=== PATIENT | female | born 1975 | race American Indian/Alaskan Native ===

== ENCOUNTER 2021-01-28 04:38 | Emergency (ER) | payer BC, SELFPAY ==
[2021-01-28] VITALS (42 sets, daily range): BP systolic 99–148; BP diastolic 48–73; PULSE 67–80; RESP 16; TEMP 36.7; O2SAT 90–98
--- NOTE | 2021-01-28 04:53 | ED.GENADUL_ITS ---
Discharge Plan Disposition Patient Disposition: HOME Condition: Stable Discharge Details Clinical Impression: Left flank pain, Hematuria, Abnormal LFTs Primary Care Provider: Kemar Reyna ED Provider: Kendy Wilkinson Home Meds and New Rx's Prescriptions: Continued levothyroxine [Synthroid] 200 mcg Tablet 200 RF: 0 sertraline 50 mg Tablet 50 mg RF: 0 phentermine 37.5 mg Capsule 37.5 mg RF: 0 Discharge Instructions Instructions: Kidney Stones (ED), Hematuria (ED), Flank Pain (ED) Additional Instructions: Please return immediately to the emergency department if you develop any new or worsening symptoms, if your condition does not improve as expected, or if you become otherwise concerned. It is extremely important that you call soon as possible to make an appointment to be seen in follow-up for this visit by your primary care doctor and a urologist as we discussed. Referrals: Fredo Nettles MD [ [facility] STAFF PHYSICIAN] - Kemar Reyna [Primary Care Provider] - Discharge Data Discharge Date/Time-TO BE ENTERED AT DEPARTURE: 01/28/21 09:57 Medical Decision Making <Bryn Yoo MD - Last Filed: 02/05/21 20:43> Patient presenting with left flank pain. Initial vital signs are normal. Abdomen is benign for me. Given her report of questionable blood in her urine consider UTI or kidney stone. Unfortunately she surpasses the weight limit of her CAT scan table. For now we will plan labs, urine and treat with IV Toradol and Zofran. If anything suspicious laboratory studies consider renal ultrasound. Patient blood work is unremarkable. Patient reports feeling much better after medication. Will obtain straight cath urine and determine disposition based on results. Lab Data Lab results reviewed: Yes I reviewed the patient's lab results. <Kendy Wilkinson MD - Last Filed: 02/09/21 20:58> Pt signed out to me at time of shift change by Dr. Yoo with renal US, reassessment pending. Please see his note for H&P. US shows no abnormality of the left kidney, right kidney not visualized. On my evaluation Pt reports that pain resolved entirely after meds. States that she has no complaints at this time. Concern for possible passed kidney stone. Exam/hx at this time is not consistent with acute emergent intra-abdominal process, UTI, sepsis, acute aortic process. Pt states that she feels well and is ready for discharge. As Pt is currently asymptomatic, transfer for CT not indicated. I had a lengthy discussion with the Pt re: limitations of initial evaluation today 2/2 inabilty to obtain advanced imaging and importance of RTED for any worsening of symptoms. I had a lengthy discussion with Patient regarding return to emergency department precautions, home care, and importance of outpatient follow-up. Pt verbalizes understanding of the plan and is amenable. Patient discharged to home with clear plan for outpatient follow-up. All questions were answered. Disposition decision was made weighing the risks and benefits of hospitalization versus outpatient treatment, the risk for further decompensation, and the patie nt's wishes. Medical Records Medical records reviewed: Yes I reviewed the patient's medical records. Imaging Data Radiologic Study: Attestation: I personally reviewed and interpreted this imaging study as follows: Radiologist's impression: EXAM: US RENAL CLINICAL HISTORY: left flank pain and hematuria TECHNIQUE: Ultrasound of both kidneys performed using standard protocol. COMPARISON: No exams were available for comparison FINDINGS: RIGHT KIDNEY: Apparently not able to be adequately visualized due to body habitus. LEFT KIDNEY: Measures 12.3 cm in length. No cysts evident. Normal cortical thickness and corticomedullary differentiaion. No solids masses. No intrarenal calculi nor hydonephrosis. URINARY BLADDER: Intraluminal urine volume is only 17 cc. Therefore occult to assess accurately for bladder masses. No obvious bladder diverticuli noted. Ureterovesical jets: Not identified IMPRESSION: 1. No significant ultrasound findings in the left kidney. 2. Right kidney was not able to be seen, apparently related to body habitus. Lab Data Lab results reviewed: Yes I reviewed the patient's lab results. Labs: Laboratory Tests Range/Units 01/28/21 01/28/21 01/28/21 05:10 05:10 06:58 WBC (4.4-10.8) 10^3/uL 5.08 RBC (3.93-5.22) 10^6/uL 4.29 Hgb (11.2-15.7) g/dL 13.8 Hct (36.0-46.0) % 42.8 MCV (80-95) fL 99.8 H MCH (27.0-33.0) pg 32.2 MCHC (32.0-36.0) % 32.2 RDW (11.7-14.6) % 13.5 Plt Count (130-400) 10^3/uL 206 MPV (8.0-11.0) fL 10.0 Immature Gran % 0.2 Neutrophils % 59.4 Lymphocytes % 26.6 Monocytes % 10.8 Eosinophils % 2.4 Basophils % 0.6 Nucleated RBC % % 0 Absolute Neutrophils (1.2-6.7) 10^3/uL 3.02 Absolute Lymphocytes (1.2-3.4) 10^3/uL 1.35 Absolute Monocytes (0.1-0.8) 10^3/uL 0.55 Absolute Eosinophils (0.0-0.7) 10^3/uL 0.12 Absolute Basophils (0.0-0.2) 10^3/uL 0.03 Sodium (136-145) mmol/L 144 Potassium (3.5-5.1) mmol/L 3.7 Chloride (98-107) mmol/L 108 H Carbon Dioxide (21.0-32.0) mmol/L 27.1 Anion Gap (3-11) mmol/L 8.9 BUN (7-18) mg/dL 10 Creatinine (0.55-1.02) mg/dL 1.0 Estimated GFR/1.73 m2 (mL/min/1.73m2) 59.96 Glucose (74-106) mg/dL 101 Calcium (8.5-10.1) mg/dL 8.8 Total Bilirubin (0.2-1.0) mg/dL 0.5 AST (15-37) U/L 43 H ALT (14-59) U/L 49 Alkaline Phosphatase (46-116) U/L 127 H Total Protein (6.4-8.2) g/dL 7.0 Albumin (3.4-5.0) g/dL 3.4 Lipase (73-393) U/L 58 Urine Color (Yellow) Yellow Urine Clarity (Clear) Cloudy Urine pH (5-8) 6.0 Ur Specific [place] (1.005-1.025) >= 1.030 H Urine Protein (Negative) mg/dL 100 H Urine Ketones (Negative) mg/dL Negative Urine Blood (Negative) Large H Urine Nitrite (Negative) Negative Urine Bilirubin (Negative) Small H Urine Urobilinogen (Up TO 0.2) EU/dL 0.2 Ur Leukocyte Esterase (Negative) Negative Urine RBC (0-2) HPF >50 H Urine WBC (0-5) HPF 0-2 Ur Epithelial Cells (Negative) HPF Few Urine Crystals (Negative) HPF Mod Calcium Oxalate Urine Bacteria (Negative) HPF Rare Urine Casts (Negative) LPF Negative Urine Mucus (Negative) Moderate Ur Culture Indicated? No Urine Glucose (Negative) mg/dL Negative HPI <Bryn Yoo MD - Last Filed: 02/05/21 20:43> General Mode of arrival: ambulatory . Date/Time Provider Initiated Documentation: 01/28/21 04:53 . Limitations to Documentation: no limitations . Information obtained by: patient and RN notes reviewed . HPI Narrative: Patient presents to the ED with left flank pain which started earlier this mo rning. 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 Describes it as a sharp ache that does not seem to radiate anywhere but is in the left side. Some nausea but no vomiting or diarrhea. Denies having pelvic pain or back pain. Describes small amount of blood in his urine when she went to the bathroom earlier. Denies fever or urinary symptoms. She denies chest pain or shortness of breath. She denies any injury. She took ibuprofen when it first started around 1 AM Related Data Home Medications Medication Instructions Recorded Confirmed levothyroxine [Synthroid] 200 01/28/21 phentermine 37.5 mg 01/28/21 sertraline 50 mg 01/28/21 Allergies Allergy/AdvReac Type Severity Reaction Status Date / Time ceftriaxone [From Rocephin] Allergy Anaphylaxis Unverified 01/28/21 04:54 lamotrigine [From Lamictal] Allergy Anaphylaxis Unverified 01/28/21 04:54 penicillin G AdvReac Unverified 01/28/21 04:54 Sulfa (Sulfonamide AdvReac Unverified 01/28/21 04:54 Antibiotics) General Stated Complaint: Abd Prob FIGUEROA: 3 Review of Systems <Bryn Yoo MD - Last Filed: 02/05/21 20:43> Narrative: As documented in HPI otherwise negative as below. Const: no fever, chills, weakness Resp: no cough, SOB, pleuritic pain CV: no CP, diaphoresis, edema, syncope GI: no vomiting, diarrhea Neuro: no headache, numbness, focal weakness, confusion PFSH <Bryn Yoo MD - Last Filed: 02/05/21 20:43> Medical History Hypothyroid PCOS (polycystic ovarian syndrome) Surgical History S/P cholecystectomy Social History Smoking/Tobacco Use Status: Never Smoking risk assessment performed?: Yes Alcohol Intake: never Substance use type: does not use Do you feel safe at home: Yes Do you feel safe in your relationship?: Yes Exam <Bryn Yoo MD - Last Filed: 02/05/21 20:43> Narrative Exam Narrative: Const: Morbidly obese female in NAD. HEENT: NC/AT. Normal facial exam. Eyes: Normal conjunctiva and sclera. Neck: Supple. Trachea midline. Lungs: Normal respiratory effort. Lungs are clear. Cor: RRR without murmur/gallop. Good radial pulses. GI: Soft and ND. Tender left flank/left lateral abdomen but without guarding Pelvic: deferred Neuro: A+O x 3. Normal speech, mentation, gait. Cranial nerves II - XII grossly intact. No gross motor or sensory deficit. Ext: No C/C/E. Skin: Warm and dry without rash. Course <Bryn Yoo MD - Last Filed: 02/05/21 20:43> Vital Signs Vital signs: Vital Signs Temperature 98.1 F 01/28/21 04:47 Pulse 80 01/28/21 04:47 Respiratory Rate 16 01/28/21 04:47 Blood Pressure 139/71 01/28/21 04:47 Pulse Oximetry 94 01/28/21 04:47 Temperature 98.1 F 01/28/21 04:47 Temperature Source Temporal Artery Scan 01/28/21 04:47 Pulse 80 01/28/21 04:47 Respiratory Rate 16 01/28/21 04:47 Respiratory Effort Non-Labored 01/28/21 04:51 Blood Pressure 139/71 01/28/21 04:47 Pulse Oximetry 94 01/28/21 04:47 Oxygen Delivery Method Room Air 01/28/21 04:47 Oxygen Flow Rate 0 01/28/21 04:47 Pain Level 8 01/28/21 04:47 Sign Out <Bryn Yoo MD - Last Filed: 02/05/21 20:43> Sign Out Data: Sign Out Comment: Patient's urine with significant blood present. Will obtain renal ultrasound prior to discharge to rule out any evidence of obstruction. Patient signed out to Dr. Wilkinson to follow-up on ultrasound and disposition. Last updated by Bryn Yoo MD at 01/28/21 07:47
[2021-01-28] MEDS: Ondansetron 4 MG/2 ML VIAL IVP (05:25)
[2021-01-28] MEDS: Ketorolac 30 MG/ML VIAL IVP (05:25)
[2021-01-28 05:36] LABS: Abs Immature Grans 0.01 10^3/uL (0.0-0.06); Absolute Basophil Count 0.03 10^3/uL (0.0-0.2); Absolute Eosinophil Count 0.12 10^3/uL (0.0-0.7); Absolute Lymphocyte Count 1.35 10^3/uL (1.2-3.4); Absolute Monocyte Count 0.55 10^3/uL (0.1-0.8); Absolute Neutrophil Count 3.02 10^3/uL (1.2-6.7); Basophils % 0.6; Eosinophils % 2.4; HCT 42.8 % (36.0-46.0); HGB 13.8 g/dL (11.2-15.7); Immature Grans % 0.2; Lymphocytes % 26.6; MCH 32.2 pg (27.0-33.0); MCHC 32.2 % (32.0-36.0); MCV 99.8 fL (80-95); Monocytes % 10.8; Neutrophils % 59.4; Nucleated RBC 0 %; Platelet Count 206 10^3/uL (130-400); RBC 4.29 10^6/uL (3.93-5.22); RDW 13.5 % (11.7-14.6); RDW-SD 49.3 fL; WBC 5.08 10^3/uL (4.4-10.8)
[2021-01-28 06:02] LABS: ALT 49 U/L (14-59); AST 43 U/L (15-37); Albumin 3.4 g/dL (3.4-5.0); Alkaline Phosphatase 127 U/L (46-116); Anion Gap 8.9 mmol/L (3-11); BUN 10 mg/dL (7-18); Bilirubin, Total 0.5 mg/dL (0.2-1.0); CO2 27.1 mmol/L (21.0-32.0); Calcium 8.8 mg/dL (8.5-10.1); Chloride 108 mmol/L (98-107); Estimated GFR 59.96 (mL/min/1.73m2); Glucose 101 mg/dL (74-106); Lipase 58 U/L (73-393); Potassium 3.7 mmol/L (3.5-5.1); Sodium 144 mmol/L (136-145)
[2021-01-28 07:10] LABS: Bilirubin Small (Negative); Blood Large (Negative); Clarity Cloudy (Clear); Glucose Negative (Negative); Ketones Negative (Negative); Leukocyte Esterase Negative (Negative); Nitrite Negative (Negative); Specific Gravity >= 1.030 (1.005-1.025); Urobilinogen 0.2 EU/dL (Up TO 0.2)
--- NOTE | 2021-01-28 07:15 | DI.US_ITS ---
Exam(s) US RENAL EXAM: US RENAL CLINICAL HISTORY: left flank pain and hematuria TECHNIQUE: Ultrasound of both kidneys performed using standard protocol. COMPARISON: No exams were available for comparison FINDINGS: RIGHT KIDNEY: Apparently not able to be adequately visualized due to body habitus. LEFT KIDNEY: Measures 12.3 cm in length. No cysts evident. Normal cortical thickness and corticomedullary differe ntiaion. No solids masses. No intrarenal calculi nor hydonephrosis. URINARY BLADDER: Intraluminal urine volume is only 17 cc. Therefore occult to assess accurately for bladder masses. No obvious bladder diverticuli noted. Ureterovesical jets: Not identified IMPRESSION: 1. No significant ultrasound findings in the left kidney. 2. Right kidney was not able to be seen, apparently related to body habitus. DATA REPOSITORY:
[2021-01-28 07:27] LABS: Bacteria Rare HPF (Negative); Epithelial Cells Few HPF (Negative); RBC >50 HPF (0-2); WBC 0-2 HPF (0-5)
[2021-01-28 07:28] LABS: C & S Indicated? No; Casts Negative LPF (Negative); Crystals Mod Calcium Oxalate HPF (Negative); Mucus Moderate (Negative)
--- OUTSIDE RECORDS SUMMARY | 2021-01-28 07:54 | XMS_ITS ---
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 MCHC 32.6 32.0-36.0 RDW 13.2 11.0-14.0 PLT 196 140-440 MPV 10.3 7.4-11.0 ANC# 3.2 1.4-7.9 IG# 0.0 0.0-0.1 LY# 1.5 1.5-4.0 MO# 0.4 0.2-0.8 EO# 0.2 0.0-0.7 BA# 0.0 0.0-0.2 NE% 60.6 IG% 0.2 0.0-1.0 LY% 27.9 MO% 8.3 EO% 3.0 BA% 0.2 COMPMET 2017-02-28 GLUC 114 74-106 BUN 10 7-18 CREATS 0.76 0.55-1.30 EGFR >60 >=60 NA 142 136-144 K+ 4.3 3.7-5.0 CL 109 98-108 CO2 25 22-32 CA 8.7 8.5-10.1 TP 6.6 6.5-8.1 ALB 3.4 3.4-5.0 TBIL 0.4 0.3-1.2 DBIL 0.1 0.0-0.2 ALKP 103 46-116 AST 24 15-37 ALT 28 13-78 LIPID W/ CALCULATED LDL 2017-02-28 CHOL 213 0-200 TRIG 155 0-200 HDL 48 40-60 LDL CALC 134 5-99 CHOL/HDL 4.4 0.0-4.5 TSH 2017-02-28 TSH 6.110 0.360-4.800 X Knee R 2V 2017-02-16 Image Accessible US Breast Unilateral Complete 2016-12-22 See Below For Report MG Mammo (Unilat-DIAGNOSTIC) 2016-12-22 See Below For Report TSH 2016-09-07 TSH 0.242 0.360-4.800 Path:Endometrial biopsy 2016-08-26 Findings MG Mammo Screening 2016-03-04 See Below For Report COMPMET 2016-02-27 GLUC 111 74-106 BUN 8 7-18 CREATS 0.86 0.55-1.30 EGFR >60 >=60 NA 142 136-144 K+ 3.4 3.7-5.0 CL 107 98-108 CO2 24 22-32 CA 8.6 8.5-10.1 TP 6.8 6.5-8.1 ALB 3.5 3.4-5.0 TBIL 0.4 0.3-1.2 DBIL 0.1 0.0-0.2 ALKP 98 46-116 AST 34 15-37 ALT 44 13-78 HIV 1/2 ANTIBODIES 2016-02-27 HIV Screen 4th Generation wRfx Non Reactive N on Reactive LIPID W/ CALCULATED LDL 2016-02-27 CHOL 235 0-200 TRIG 177 0-200 HDL 50 40-60 LDL CALC 150 5-99 CHOL/HDL 4.7 0.0-4.5 THYROID PROFILE 2016-02-27 TU 28.0 31.0-39.0 T4 12.40 4.70-13.30 TSH 1.165 0.360-4.800 FTI 8.68 5.93-13.13 RAPID STREP SCREEN,IN OFFICE (2 2016-01-15 Swab System) Result neg RAPID STREP PLATE 2016-01-15 Culture Observations Negative for group A Strep. Direct Exam Negative first day HIV 1/2 ANTIBODIES 2015-09-26 HIV Screen 4th Generation wRfx HIV 1/0/2 ABS QUAL HIV 1/0/2 ABS HIV 1/0/2 ABS INDEX VALUE HIV 1/2 [facility] TEST SITE BASEMET 2010-09-28 GLUCOSE 99 74-118 BUN 6 8-26 CREATININE STANDARDIZED 0.74 0.50-1.1 5 ESTIMATED GLOMERULAR FILTRATION >60 SODIUM 141 136-144 POTASSIUM 4.1 3.7-5.0 CHLORIDE 112 101-111 CARBON DIOXIDE 25 22-32 CALCIUM 9.1 8.8-10.3 CBC WITH AUTO DIFF 2010-09-28 WHITE BLOOD COUNT 3.9 4.0-12.0 RED CELL COUNT 4.2 4.5-6.0 HEMOGLOBIN 14.1 12.5-16.0 HEMATOCRIT 41.6 37.0-47.0 MEAN CORPUSCULAR VOLUME 98 78-100 MEAN CORPUSCULAR HEMOGLOBIN 33.4 27.0 -32.0 MEAN CORPUSCULAR HGB CONC. 34.0 32.0- 36.0 RED CELL DISTRIBUTION WIDTH 12.7 11.0 -14.0 PLATELET 186 140-440 MEAN PLATELET VOLUME 8.0 7.4-11.0 NEUTROPHIL % 47.6 45.0-75.0 LYMPHOCYTE % 39.3 20.0-50.0 MONOCYTE % 9.5 2.0-10.0 EOSINOPHIL % 3 0-6 BASOPHIL % 1 0-1 ABSOLUTE NEUTROPHIL COUNT 1.9 1.4-7. 9 AUTOMATED TROPONIN I 2010-09-28 TROPONIN I 0.00 0.00-0.05 EKG to be done at hospital EKG to be done at hospital BASEMET 2010-03-17 GLUCOSE 102 74-118 BUN 12 8-26 CREATININE STANDARDIZED 0.61 0.50-1.1 5 ESTIMATED GLOMERULAR FILTRATION >60 SODIUM 139 136-144 POTASSIUM 4.3 3.7-5.0 CHLORIDE 109 101-111 CARBON DIOXIDE 22 22-32 CALCIUM 9.2 8.8-10.3 CBC WITH AUTO DIFF 2010-03-17 WHITE BLOOD COUNT 4.3 4.0-12.0 RED CELL COUNT 4.2 4.5-6.0 HEMOGLOBIN 14.4 12.5-16.0 HEMATOCRIT 42.5 37.0-47.0 MEAN CORPUSCULAR VOLUME 100 78-100 MEAN CORPUSCULAR HEMOGLOBIN 33.9 27.0 -32.0 MEAN CORPUSCULAR HGB CONC. 33.9 32.0- 36.0 RED CELL DISTRIBUTION WIDTH 12.9 11.0 -14.0 PLATELET 167 140-440 MEAN PLATELET VOLUME 8.5 7.4-11.0 NEUTROPHIL % 52.5 45.0-75.0 LYMPHOCYTE % 35.4 20.0-50.0 MONOCYTE % 8.7 2.0-10.0 EOSINOPHIL % 3 0-6 BASOPHIL % 1 0-1 ABSOLUTE NEUTROPHIL COUNT 2.3 1.4-7. 9 AUTOMATED CPK 2010-03-17 CPK 153 38-234 TROPONIN I 2010-03-17 TROPONIN I 0.01 0.00-0.05 CREATININE Creatinine 0.8 EGFR BUN BUN BUN 11 BUN* GLUCOSE GLUCOSE Glucose GLUCOSE 79 LIVER FUNCTION TESTS ALBUMIN 3.8 ALKALINE PHOSPHATASE 92 ALT 88 AST 42 DIRECT BILIRUBIN 0.2 TOTAL BILIRUBIN 0.6 TOTAL PROTEIN 6.7 zzTOTAL BILI TOTAL PROTEIN* ALBUMIN* TOTAL BILI* DIRECT BILI* ALT* AST* ALKALINE PHOS* LIPID W/ CALCULATED LDL CHOLESTEROL 230 TRIGLYCERIDE 107 HDL 44 LDL CALC LDL DIRECT CHOL/HDL zzCholesterol zzHdl zzTriglycerides zzChol/HDL LDL CALC* LYTES CHLORIDE 106 CARBON DIOXIDE 23 POTASSIUM 4.0 SODIUM 141 SODIUM* POTASSIUM* CHLORIDE* CO2* TSH THYROID STIMULATING HORMONE 0.32 SED RATE CORRECT SED RATE 20 RAPID STREP SCREEN,IN OFFICE (2 Swab System) Result To Micro RHEUMATOID FACTOR Rheum. Factor Abs Rheum. Factor Abs Rheumatoid Factor Negative ALEXIS (Antinuclear Abs) Antinuclear Antibodies (ALEXIS) <7.5 IU/mL Homogeneous Pattern Nucleolar Pattern Speckled pattern Centromere pattern Note ALEXIS Pattern SED RATE CORRECT SED RATE 18 CREATININE Creatinine 0.6 EGFR UA-DIP W/REFLEX SOURCE BILIRUBIN NEG BLOOD NEG CLARITY Cloudy COLOR Yellow GLUCOSE NEG KETONES NEG LEUKOCYTES NEG NITRITES NEG PH 5.5 PROTEIN NEG SPECIFIC GRAVITY 1.025 UROBILINOGEN 0.2 UROBILINOGEN BUN BUN BUN 9 BUN* LYTES CHLORIDE 105 CARBON DIOXIDE 26 POTASSIUM 4.0 SODIUM 142 SODIUM* POTASSIUM* CHLORIDE* CO2* TSH THYROID STIMULATING HORMONE 8.12 CBC WITH AUTO DIFF CORRECT ANC WBC HGB HCT PLATELET RBC MCV MCH MCHC RDW MPV ANC #IG #LYMPH #EOS #MONO #BASO NEUTROPHIL % IG% LYMPHOCYTE % MONOCYTE % EOSINOPHIL % BASOPHIL % ATYP LYMPH PLT MORPH PROMYELO MACRO MICRO NRBC HYPO BLAST ANISO BAND BASO EOS LYMPH META MONO MYELO POIK RBC MORPH SEG MANUAL DIFF #IMM GRAN %IMM GRAN LIVER FUNCTION TESTS ALBUMIN 3.9 ALKALINE PHOSPHATASE 89 ALT 127 AST 73 DIRECT BILIRUBIN 0.0 TOTAL BILIRUBIN 0.3 TOTAL PROTEIN 6.8 zzTOTAL BILI TOTAL PROTEIN* ALBUMIN* TOTAL BILI* DIRECT BILI* ALT* AST* ALKALINE PHOS* TSH THYROID STIMULATING HORMONE 11.76 UA-DIP W/REFLEX SOURCE BILIRUBIN Negative BLOOD Negative CLARITY Cloudy COLOR Yellow GLUCOSE Negative KETONES Negative LEUKOCYTES Negative NITRITES Negative PH 7.0 PROTEIN Negative SPECIFIC GRAVITY 1.020 UROBILINOGEN 0.2 UROBILINOGEN CBC WITHOUT DIFF (Hemogram) MPV WBC RBC HGB HCT PLATELET MCV MCH MCHC RDW MPV@L GLUCOSE GLUCOSE Glucose GLUCOSE 86 LIVER FUNCTION TESTS ALBUMIN 3.8 ALKALINE PHOSPHATASE 88 ALT 105 AST 63 DIRECT BILIRUBIN 0.0 TOTAL BILIRUBIN 0.5 TOTAL PROTEIN 6.9 zzTOTAL BILI TOTAL PROTEIN* ALBUMIN* TOTAL BILI* DIRECT BILI* ALT* AST* ALKALINE PHOS* PT/INR PT 11.0 INR PT-INR 0.87 PT-INR Interp Goal INR range GOAL INR RANGE TABLET SIZE AVG.QD DOSE NEW AVG.QD DOSE NEXT INR DUE TSH THYROID STIMULATING HORMONE 6.34 SED RATE CORRECT SED RATE 25 PROLACTIN PROLACTIN 9.3 CBC WITH AUTO DIFF CORRECT ANC WBC HGB HCT PLATELET RBC MCV MCH MCHC RDW MPV ANC #IG #LYMPH #EOS #MONO #BASO NEUTROPHIL % IG% LYMPHOCYTE % MONOCYTE % EOSINOPHIL % BASOPHIL % ATYP LYMPH PLT MORPH PROMYELO MACRO MICRO NRBC HYPO BLAST ANISO BAND BASO EOS LYMPH META MONO MYELO POIK RBC MORPH SEG MANUAL DIFF #IMM GRAN %IMM GRAN FERRITIN Ferritin FERRITIN 244 TSH THYROID STIMULATING HORMONE 12.95 SED RATE CORRECT SED RATE 17 UA-DIP W/REFLEX SOURCE BILIRUBIN Negative BLOOD Negative CLARITY Clear COLOR Yellow GLUCOSE Negative KETONES Negative LEUKOCYTES Negative NITRITES Negative PH 5.0 PROTEIN Negative SPECIFIC GRAVITY 1.030 UROBILINOGEN 0.2 UROBILINOGEN CALCIUM Calcium 8.9 CALCIUM LYTES CHLORIDE 102 CARBON DIOXIDE 25 POTASSIUM 3.6 SODIUM 140 SODIUM* POTASSIUM* CHLORIDE* CO2* MAGNESIUM MAGNESIUM 1.7 MAGNESIUM* UA-COLONY COUNT ONLY COLONY COUNT To Micro ANTIBIOTIC: Day1 Day 2 Isolate1 SOURCE: REASON FOR VISIT CPE, no response r/s CPE with CL FYI, covid test for work, Covid Screen , phentermine, levothyroxine, phentermine and synthroid 50 mcg, note for work, congestion, headache, sore throat, 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 Took immodium 1st dose and didn't help. Pt states she took a second dosea few hours ago. Pt states she also feels weak, feels warm and chills., Medications reviewed w/pt,med. list is correct, No medication refills needed at this time., adderall s/e, increased anxiousness, Phentermine refill, ? allergic reaction, 3 month f/u, hypothyroid depression, Refills: none, Concerns: pt states she thinks she is getting a sinus infection , Phentermine refill, Phentermine refill, New Script, RE:RE:Re:RE:Lets try something other than Venlafaxine, RE:Re:RE:Lets try something other than Venlafaxine, Phentermine, Synthroid refills, Re:RE:Lets try something other than Venlafaxine, Let'stry something other than Venlafaxine, follow up, PT REQUESTING FLU SHOT TODAY, sinus infection, Pt states she has reemerging sinus pressure, symptoms include, no energy, fatigued, no fevers, headache, sore throat, swelling in face, runny nose, states she has pressure under her eyes that goes up into her head , Pt states she tried a decongestant but didn't help tried to drink alot of fluids , 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 Medications managed by prescribing provider, fu, Medications listed below as unknown were not reviewed with patient. 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 Medications managed by prescribing provider, F/U, pt r.s''d via web portal, 3 mo f/u dep ptrs via the web portal, 08/07/2018 mailed letter Reschedule Appointment Request, Cancel Appointment Request, 07/26 Reschedule Appointment Request, Cancel Appointment Request, F/U, request for another appt. with , f/u, Referral Done, f/u, rescheduled appt. with , f/u Referral Done, Medications listed below as unknown were not reviewed with patient. Medications managed by prescribing provider, Phentermine, f/u, phentermine refill, possible infection under arm, duplicate, synthroid , possible infection underarm requested TL, flu vaccine-, SBIRT, f/u, Referral Done, Medications listed below as unknown were not reviewed with patient. Medications managed by prescribing provider, 3 month f/u, No refills needed, declined flu shot, unable to get weight, f/u, Referral Done, Medications listed below asunknown were not reviewed with patient. Medications managed by prescribing provider, Phentermine refill, 3m f/u - pt called to r/s, sore throat, headache, exposed to strep, Pt states yesterday woke up with headache and sore throat, states she has been weak, States her nephews whom she lives with both have had strep , Acute visit, f/u, Medications listed below as unknown were not reviewed with patient. Medications managed by prescribing provider, f/u- pt called to r/s, 3 mo f/u , f/u, Medications listed below as unknown were not reviewed with patient. Medications managed by prescribing provider, questions about appt, fu, Medications listed below as unknown were not reviewed with patient. Medications managed by prescribing provider, f/u, f/u, Medications listed below as unknown were not reviewed with patient. Medications managed by prescribing provider, DISCLAIMER: THIS NOTE WAS CREATED USING [employer] VOICE RECOGNITION SOFTWARE. IT WAS REVIEWED FOR MAJOR CONTENT. HOWEVER, THERE MAY BE MULTIPLE SMALL DISCREPANCIES AND ERRORS DUE TO THE VOICE RECOGNITION ASPECTS OF THE SOFTWARE., weight f/u, wt check, depression, Medications listed below as unknown were not reviewed with patient. Medicationsmanaged by prescribing provider, started phentermine, weigh in, Has not yet started Phentermine, appt for weight check -lmom LW, Phentermine-needs weights, Referral for Eye [facility], DISCLAIMER: THIS NOTE WAS CREATED USING [employer] VOICE RECOGNITION SOFTWARE. IT WAS REVIEWED FOR MAJOR CONTENT. HOWEVER, THERE MAY BE MULTIPLE SMALL DISCREPANCIES AND ERRORS DUE TO THE VOICE RECOGNITION ASPECTS OF THE SOFTWARE., 3m f/u, 3m f/u, worsening cough, still not feeling well- patient LM will need to call back to r/s 10/17, Still not feeling well, Update, some improvement, Not feeling better, DISCLAIMER: THIS NOTE WAS CREATED USING [employer].5 VOICE RECOGNITION SOFTWARE. IT WAS REVIEWED FOR MAJOR CONTENT. HOWEVER, THERE MAY BE MULTIPLE SMALL DISCREPANCIES AND ERRORS DUE TO THE VOICE RECOGNITION ASPECTS OF THE SOFTWARE., Sore throat, fever, appt. OK per AC, Appt. request, f/u, patient update, 2 month f/u, 2month f/u, 7 wk f/u, after PT, follow up, DISCLAIMER: THIS NOTE WAS CREATED USING [employer]5 VOICE R ECOGNITION SOFTWARE. IT WAS REVIEWED FOR MAJOR CONTENT. HOWEVER, THERE MAY BE MULTIPLE SMALL DISCREPANCIES AND ERRORS DUE TO THE VOICE RECOGNITION ASPECTS OF THE SOFTWARE., 3 mo f/u Depression, w anxiety, f/u, Medications listed below as unknown were not reviewed with patient. Medications managed byprescribing provider, 1st no show for ER[facility] , follow up, Medications listed below as unknown were not reviewed with patient. Medications managed by prescribing provider, followup, Medications listed below as unknown were not reviewed with patient. Medications managed by prescribing provider, "DISCLAIMER: THIS NOTE WAS CREATED USING [employer] VOICE RECOGNITION SOFTWARE. IT WAS REVIEWED FOR MAJOR CONTENT. HOWEVER, THERE MAY BE MULTIPLE SMALL DISCREPANCIES AND ERRORS DUE TO THE VOICE RECOGNITIONASPECTS OF THE SOFTWARE., MRI f/u, pt states no other concerns today, canceled apt. , follow up, MRIf/u, , fu, Medications listed below as unknown were not reviewed with patient. Medications managed by prescribing provider, f/u, new MRI auth needed, Exact weight for MRI, "DISCLAIMER: THIS NOTE WAS CREATED USING [employer] VOICE RECOGNITION SOFTWARE. IT WAS REVIEWED FOR MAJOR CONTENT. HOWEVER, THERE MAY BE MULTIPLE SMALL DISCREPANCIES AND ERRORS DUE TO THE VOICE RECOGNITION ASPECTS OF THE SOF TWARE., 6 week f/u depression fibrmyagia, "DISCLAIMER: THIS NOTE WAS CREATED USING [employer] VOICE RECOGNITION SOFTWARE. IT WAS REVIEWED FOR MAJOR CONTENT. HOWEVER, THERE MAY BE MULTIPLE SMALLDISCREPANCIES AND ERRORS DUE TO THE VOICE RECOGNITION ASPECTS OF THE SOFTWARE., Rt knee pain, Pt wants to get an MRI of Rt knee states [facility] were not helpful-sd, Pt states has already been referred but Dr. Courtney office was not doing it-sd, Rt knee want referral to [facility] Ortho, follow up, Synthroid & Celexa refills, "DISCLAIMER: THIS NOTE WAS CREATED USING [employer] VOICE RECOGNITION SOFTWARE. IT WAS REVIEWED FOR MAJOR CONTENT. HOWEVER, THERE MAY BE MULTIPLE SMALL DISCREPANCIES ANDERRORS DUE TO THE VOICE RECOGNITION ASPECTS OF THE SOFTWARE., 6 week f/u Depression , f/u , Medications listed below as unknown were not reviewed with patient. Medications managed by prescribing provider, knee, not happy with [facility], bariatric, referral done , Increase Synthroid, blood draw, "DISCLAIMER: THIS NOTE WAS CREATED USING [employer] VOICE RECOGNITION SOFTWARE. IT WAS REVIEWED FOR MAJOR CONTENT. HOWEVER, THERE MAY BE MULTIPLE SMALL DISCREPANCIES AND ERRORS DUE TO THE VOICE RECOGNITION ASPECTS OF THE SOFTWARE., CPE , pt saw Dr. Bhakta on January 12, 2017 for her female part, f/u,update on pt, Referral to orthopedic, bariatric-- patient r/s due to hurt ankle and can not stand onscale 02/21, r/s appt with [facility], f/u-- patient called r/s 02/09, bariatric--patient r/s 01/20, f/u, Medications listed below as unknown were not reviewed with patient. Medications managed by prescribing provider, f/u, Medications listed below as unknown were not reviewed with patient. Medications managed by prescribing provider, bariatric, f/u, Medications listed below as unknown were not reviewed with patient. Medications managed by prescribing provider, "DISCLAIMER: THIS NOTE WAS CREATED USING [employer] VOICE RECOGNITION SOFTWARE. IT WAS REVIEWED FOR MAJOR CONTENT. HOWEVER, THERE MAY BE MULTIPLE SMALL DISCREPANCIES AND ERRORS DUE TO THE VOICE RECOGNITION ASPECTS OF THE SOFTWARE., possible brest infection patient requested date , Right breast has been hurting the past few days, have gotten better but not 100% better. No redness. , Hard to tell where pain is. White/clear disharge from right nipple, felt better after she squeezed it out., Medications reviewed w/pt,med. list is correct, No medication refills needed at this time., "DISCLAIMER: THIS NOTE WAS CREATED USING [employer] VOICE RECOGNITION SOFTWARE. IT WAS REVIEWED FOR MAJOR CONTENT. HOWEVER, THERE MAY BE MULTIPLE SMALL DISCREPANCIES AND ERRORS DUE TO THE VOICE RECOGNITION ASPECTS OF THE SOFTWARE., 4 wk wt f/u, f/u, Medications listed below as unknown were not reviewed with patient. Medications managed by prescribing provider, Bariatric, Bariatric - 11/23/2016 pt called to r/s ac, 4 week f/u wt., f/u, Medications listed below as unknown were not reviewed with patient. Medications managed by prescribing provider, Bariatric, 4 week f/u wt, dep r/s per pt request, tick bite, bariatric r/s per pt request forgot, f/u, Medications listed below as unknown were not reviewed with patient. Medications managed by prescribing provider, f/u, f/u, Medications listed below as unknown were not reviewed with patient. Medications managed by prescribing provider, "DISCLAIMER: THIS NOTE WAS CREATED USING [email or web address] VOICE RECOGNITION SOFTWARE. IT WAS REVIEWED FOR MAJOR CONTENT. HOWEVER, THERE MAY BE MULTIPLE SMALL DISCREPANCIESAND ERRORS DUE TO THE VOICE RECOGNITION ASPECTS OF THE SOFTWARE., 4 week f/u dep, wt, Please refill levothyroxine to [facility] in [place], bariatric, f/u, Medications listed below as unknown were not reviewed with patient. Medications managed by prescribing provider, f/u, Medications listed below as unknown were not reviewed with patient. Medications managed by prescribing provider, Decrease Synthroid, blood draw, "DISCLAIMER: THIS NOTE WAS CREATED USING [email or web address] VOICE RECOGNITION SOFTWARE. IT WAS REVIEWED FOR MAJOR CONTENT. HOWEVER, THERE MAY BE MULTIPLE SMALL DISCREPANCIES AND ERRORSDUE TO THE VOICE RECOGNITION ASPECTS OF THE SOFTWARE., 4 week f/u weight issues, pt needs a refill on her Citalopram [place] - RE, Boil behind Left Ear, f/u depression, Medications listed below as unknown were not reviewed with patient. Medications managed by prescribing provider, reschedule appt. with ERJ , f/u--depression see GEMA, referral to Dr. Bhakta, Citalopram 20mg refill, bariatric, bariatric, "DISCLAIMER: THIS NOTE WAS CREATED USING [employer].5 VOICE RECOGNITION SOFTWARE.IT WAS REVIEWED FOR MAJOR CONTENT. HOWEVER, THERE MAY BE MULTIPLE SMALL DISCREPANCIES AND ERRORS DUE TO THE VOICE RECOGNITION ASPECTS OF THE SOFTWARE., 4 WEEK F/U Depression, weight gain, depression, Medications listed below as unknown were not reviewed with patient. Medications managed by prescribing provider, fu, panic attack, "DISCLAIMER: THIS NOTE WAS CREATED USING [employer] VOICE RECOGNITION SOFTWARE. IT WAS REVIEWED FOR MAJOR CONTENT. HOWEVER, THERE MAY BE MULTIPLE SMALL DISCREPANCIES AND ERRORS DUE TO THE VOICE RECOGNITION ASPECTS OF THE SOFTWARE., Med FU, Meds, cant make appt, 4 week f/u , bariatric, depression, "DISCLAIMER: THIS NOTE WAS CREATED USING [employer] VOICE RECOGNITION SOFTWARE. IT WAS REVIEWED FOR MAJOR CONTENT. HOWEVER, THERE MAY BE MULTIPLE SMALL DISCREPANCIES AND ERRORS DUE TO THE VOICE RECOGNITION ASPECTS OF THE SOFTWARE., 4wk f/u, call patient please,sister r/s 05/18, Pt philomena'df appt 03/25 KB , Severe morbid obesity, requires dietary counseling, please evaluate and treat, Referral Done pt philomena'd appt 03/29 KB , Severe morbid obesity, requires dietary counseling, please evaluate and treat, Referral Done, 4 week f/u obesity, 4 week f/u , cough, fa tigue, congested x 2 weeks, fever last week/jf, multi refills, morbid obesity, blood draw, COMP REV/new patient, pt has some discoloration under RT breast, Citalopram refill , sore throat/headache, cpenew patient appt 02/26 with erwin GOOD johnson, johnson Insurance Providers [facility] Member Patient Patient Patient Patient Patient Subscriber Subscriber Subscriber Group Insurance Plan Plan Plan Plan ID Relationship Address Phone Name Date of ID Name Date of No Type Insurance Insurance Insurance Coverage to Subscriber Address Phone Name Dates SELF PAY ANY STREET SELF PAY self ANASTASI 1975 [address] [place] [address] [facility] MEDICAID [place] MEDICAID self ANASTASI 1975 [id number] [place] [facility] [place] CIGNA [address]IG[address] self ANASTASI 1975 [id number] [address]ALTH[id number] [place] [id number] [phone] NEW self ANASTASI [id number] [place] [id number] [phone] [place] A [place]ALTH[place] [facility] [facility] [id number] FAMILIES [phone] NEW self ANASTASI [id number] [place] [address] [facility] [place] [address] SELF PAY self ANASTASI 1975 [address] [place] [id number] INSURANCE [facility] MEDICAID [place] MEDICAID self ANASTASI [id number] [place] [facility] SELF PAY [address] STREET SELF PAY self ANASTASI [id number] [place] [id number] INSURANCE [facility] [id number] NEW self ANASTASI [id number] [place] [address] [facility] [place] [address] FAMILIES MEDICAID [place] MEDICAID self ANASTASI [id number] [place] [facility] NEW [phone] NEW self ANASTASI [id number] [place] [address] [facility] [place] [address] [facility] MEDICAID XEROS MEDICAID self ANASTASI [id number] [place] [facility] MEDICAL (GENERAL) HISTORY Type Description Date Medical History seizures Medical History depression/anxiety Medical History hx of cervical cancer Medical History HTN Medical History asthma Medical History hx of pneumonia Medical History seasonal allergies Medical History athritis Medical History IBS Medical History thyroid disease Medical History Chondromalacia of right patella Medical History Chondromalacia of left patella Surgical History gallbladder Hospitalization History gallbladder 2002
--- NOTE | 2021-01-28 09:15 | NUR.NOTE ---
Nursing Note: Referral to [facility] Urology faxed for hematuria, presumed kidney stone. Time frame determined by Urology. Gracy Sethi
== END 2021-01-28 09:57 | disposition home or self-care (01) ==
PROVIDERS: Emergency Medicine; Emergency Provider Student in an Organized Health Care Education/Training Program; PCP Nurse Practitioner
DX: R31.9 Hematuria, unspecified (principal); R10.9 Unspecified abdominal pain; R94.5 Abnormal results of liver function studies
CPT/HCPCS: 76770; 80053; 81025; 83690; 96374; 96375; 99284; 81003; 81015; 85025; J1885; J2405